=== PATIENT | female | born 1965 | race Two or more races ===

== ENCOUNTER 2021-08-05 16:32 | Emergency (ER) | payer SELFPAY ==
[~2021-08-05] VITALS: Ht 170.2 cm; Wt 81.8 kg
[2021-08-05] MEDS ORDERED: ASPIRIN 325 MG TABLET PO ONE (17:00)
[2021-08-05] MEDS ORDERED: MORPHINE SULFATE 2 MG/ML INJ. IV/SQ PRN (17:00)
[2021-08-05 17:07] LABS: BASO % 1 % (0-3); EOS # 0.2 x10^3/uL (0.0-0.7); EOS % 3 % (0-3); HEMATOCRIT 42.4 % (36.0-47.0); HEMOGLOBIN 14.8 g/dL (12.0-15.5); LYMPH # 2.9 x10^3/uL (1.0-4.8); LYMPH % 43 % (24-48); MEAN CORPUSCULAR HEMOGLOBIN 32 pg (25-35); MEAN CORPUSCULAR HGB CONC 35 g/dL (31-37); MEAN CORPUSCULAR VOLUME 91 fL (79-100); MONO # 0.5 x10^3/uL (0.0-1.1); MONO % 7 % (0-9); NEUT # 3.1 x10^3/uL (1.8-7.7); NEUT % 46 % (31-73); PLATELET COUNT 202 x10^3/uL (140-400); RED BLOOD COUNT 4.64 x10^6/uL (3.50-5.40); WHITE BLOOD COUNT 6.7 x10^3/uL (4.0-11.0)
[2021-08-05 17:19] LABS: CALCIUM 8.6 mg/dL (8.5-10.1); CREATININE 0.6 mg/dL (0.6-1.0); GFR 103.4; POTASSIUM 3.7 mmol/L (3.5-5.1)
--- NOTE | 2021-08-05 17:20 | RAD ---
EXAMINATION: Chest radiograph. VIEWS: 1 COMPARISON: None INDICATION:55 years, Female, chest pain. FINDINGS: Normal cardiomediastinal silhouette. Diffuse bilateral pulmonary reticulations. No pleural effusion o r pneumothorax. No acute osseous process. IMPRESSION: Diffuse bilateral pulmonary reticulations, findings may reflect mild interstitial pulmonary edema. Electronically signed by: Alo Sexton MD (08/05/2021 5:17 PM) [facility]
[2021-08-05 17:24] LABS: ALBUMIN 3.8 g/dL (3.4-5.0); ALBUMIN/GLOBULIN RATIO 0.9 (1.0-1.7); MAGNESIUM 2.1 mg/dL (1.8-2.4); TOTAL BILIRUBIN 0.4 mg/dL (0.2-1.0); TOTAL PROTEIN 7.9 g/dL (6.4-8.2)
[2021-08-05] MEDS ORDERED: ALPRAZolam 0.5 MG TABLET PO ONE (19:00)
[2021-08-05] MEDS ORDERED: LIDO:MAALOX 1:1 20 ML SINGLE DOSE. SWSW ONE (19:00)
[2021-08-05 19:12] LABS: BARBITURATES NEG (NEG); BENZODIAZEPINES NEG (NEG); CANNABINOIDS NEG (NEG); COCAINE NEG (NEG); METHADONE NEG (NEG); OPIATES NEG (NEG); PHENCYCLIDINE NEG (NEG)
[2021-08-05 19:35] LABS: AMPHETAMINE/METHAMPHETAMINE NEG (NEG)
[2021-08-05 19:46] LABS: BACTERIA,URINE 0 /HPF (0-FEW); RBC,URINE 0 /HPF (0-2); WBC,URINE 0 /HPF (0-4)
--- NOTE | 2021-08-05 20:36 | PHYS DOC ---
Past Medical History Past Medical History: Anxiety Past Surgical History: No Surgical History Smoking Status: Never Smoker Alcohol Use: None General Adult EDM: Chief Complaint: CHEST PAIN HPI: HPI: Patient is a 55 year old female with history of anxiety presenting to the ED today complaining of 10 out of 10 left-sided intermittent chest pain, symptoms of been going on for 3 months. Patient denies anything exacerbating or relieving her symptoms. Denies any pain radiating anywhere in the chest. Freight Adjuster line was used for [place] as well as patient's past interpreted Review of Systems: Review of Systems: Constitutional: Denies fever or chills. [] Eyes: Denies change in visual acuity. [] HENT: Denies nasal congestion or sore throat. [] Respiratory: Denies cough or shortness of breath. [] Cardiovascular: Reports chest pain Musculoskeletal: Denies back pain or joint pain. [] Integument: Denies rash. [] Neurologic: Denies headache, focal weakness or sensory changes. [] Psychiatric: Denies depression or anxiety. [] Heart Score: C/O Chest Pain: Yes HEART Score for Chest Pain: HEART Score for Chest Pain Response (Comments) Value History Slighlty/Non-Suspicious 0 ECG Normal 0 Age >45 - < 65 1 Risk Factors No Risk Factors 0 Troponin < Normal Limit 0 Total 1 Risk Factors: Risk Factors: DM, Current or recent (<one month) smoker, HTN, HLP, family hist ory of CAD, obesity. Risk Scores: Score 0 - 3: 2.5% MACE over next 6 weeks - Discharge Home Score 4 - 6: 20.3% MACE over next 6 weeks - Admit for Clinical Observation Score 7 - 10: 72.7% MACE over next 6 weeks - Early Invasive Strategies Current Medications: Current Medications Medications (Trade) Dose Ordered Sig/Will Start Time Stop Time Status Last Admin Dose Admin Alprazolam (Xanax) 0.5 mg 1X ONCE 08/05/21 19:00 08/05/21 19:01 DC 08/05/21 19:22 0.5 MG Aspirin (Onur Aspirin) 325 mg 1X ONCE 08/05/21 17:00 08/05/21 17:45 DC 08/05/21 18:20 325 MG Morphine Sulfate (Morphine Sulfate) 2 mg PRN Q15MIN PRN 08/05/21 17:00 08/06/21 16:59 08/05/21 18:21 2 MG Multi-Ingredient Mouthwash/Gargle (Gi Cocktail) 20 ml 1X ONCE 08/05/21 19:00 08/05/21 19:01 DC 08/05/21 19:23 20 ML Allergies: Allergies: Allergies Coded Allergies Type Severity Reaction Last Updated Verified No Known Drug Allergies 08/05/21 No Physical Exam: PE: Constitutional: Well developed, well nourished, no acute distress, non-toxic appearance. [] HENT: Normocephalic, atraumatic, bilateral external ears normal, oropharynx moist, no oral exudates, nose normal. [] Eyes: PERRLA, EOMI, conjunctiva normal, no discharge. [] Neck: Normal range of motion, no tenderness, supple, no stridor. [] Cardiovascular:Heart rate regular rhythm, no murmur [] Lungs & Thorax: Bilateral breath sounds clear to auscultation [] Abdomen: Bowel sounds normal, soft, no tenderness, no masses, no pulsatile masses. [] Skin: Warm, dry, no erythema, no rash. [] Back: No tenderness, no CVA tenderness. [] Extremities: No tenderness, no cyanosis, no clubbing, ROM intact, no edema. [] Neurologic: Alert and oriented X 3, normal motor function, normal sensory function, no focal deficits noted. [] Psychologic: Affect normal, judgement normal, mood normal. [] Current Patient Data: Labs: Laboratory Tests Test 08/05/21 16:45 08/05/21 19:00 08/05/21 19:42 White Blood Count 6.7 x10^3/uL (4.0-11.0) Red Blood Count 4.64 x10^6/uL (3.50-5.40) Hemoglobin 14.8 g/dL (12.0-15.5) Hematocrit 42.4 % (36.0-47.0) Mean Corpuscular Volume 91 fL (79-100) Mean Corpuscular Hemoglobin 32 pg (25-35) Mean Corpuscular Hemoglobin Concent 35 g/dL (31-37) Red Cell Distribution Width 13.0 % (11.5-14.5) Platelet Count 202 x10^3/uL (140-400) Neutrophils (%) (Auto) 46 % (31-73) Lymphocytes (%) (Auto) 43 % (24-48) Monocytes (%) (Auto) 7 % (0-9) Eosinophils (%) (Auto) 3 % (0-3) Basophils (%) (Auto) 1 % (0-3) Neutrophils # (Auto) 3.1 x10^3/uL (1.8-7.7) Lymphocytes # (Auto) 2.9 x10^3/uL (1.0-4.8) Monocytes # (Auto) 0.5 x10^3/uL (0.0-1.1) Eosinophils # (Auto) 0.2 x10^3/uL (0.0-0.7) Basophils # (Auto) 0.0 x10^3/uL (0.0-0.2) Sodium Level 139 mmol/L (136-145) Potassium Level 3.7 mmol/L (3.5-5.1) Chloride Level 101 mmol/L (98-107) Carbon Dioxide Level 27 mmol/L (21-32) Anion Gap 11 (6-14) Blood Urea Nitrogen 12 mg/dL (7-20) Creatinine 0.6 mg/dL (0.6-1.0) Estimated GFR (Cockcroft-Gault) 103.4 BUN/Creatinine Ratio 20 (6-20) Glucose Level 101 mg/dL (70-99) H Calcium Level 8.6 mg/dL (8.5-10.1) Magnesium Level 2.1 mg/dL (1.8-2.4) Total Bilirubin 0.4 mg/dL (0.2-1.0) Aspartate Amino Transferase (AST) 34 U/L (15-37) Alanine Aminotransferase (ALT) 36 U/L (14-59) Alkaline Phosphatase 121 U/L (46-116) H Troponin I High Sensitivity 7 ng/L (4-50) 7 ng/L (4-50) WM-Dbc-J-Type Natriuretic Peptide 93 pg/mL (0-124) Total Protein 7.9 g/dL (6.4-8.2) Albumin 3.8 g/dL (3.4-5.0) Albumin/Globulin Ratio 0.9 (1.0-1.7) L Urine Collection Type Unknown Urine Color (Auto) Colorless Urine Turbidity Clear Urine pH (Auto) 7.0 (<5.0-8.0) Urine Specific [place] 1.004 (1.000-1.030) Urine Protein (Auto) Negative mg/dL (Negative) Urine Glucose (Auto)(UA) Negative mg/dL (Negative) Urine Ketones (Auto) Negative mg/dL (Negative) Urine Blood (Auto) Negative (Negative) Urine Nitrite Negative (Negative) Urine Bilirubin (Auto) Negative (Negative) Urine Urobilinogen (Auto) Normal mg/dL (Normal) Urine Leukocyte Esterase (Auto) Negative (Negative) Urine RBC 0 /HPF (0-2) Urine WBC 0 /HPF (0-4) Urine Squamous Epithelial Cells Few /LPF Urine Bacteria 0 /HPF (0-FEW) Urine Opiates Screen Neg (NEG) Urine Methadone Screen Neg (NEG) Urine Barbiturates Neg (NEG) Urine Phencyclidine Screen Neg (NEG) Urine Amphetamine/Methamphetamine Neg (NEG) Urine Benzodiazepines Screen Neg (NEG) Urine Cocaine Screen Neg (NEG) Urine Cannabinoids Screen Neg (NEG) Urine Ethyl Alcohol Neg (NEG) Laboratory Tests 08/05/21 16:45 Laboratory Tests 08/05/21 16:45 Vital Signs: Vital Signs Date Time Temp Pulse Resp B/P (MAP) Pulse Ox O2 Delivery O2 Flow Rate FiO2 08/05/21 18:21 18 100 Room Air 08/05/21 18:11 98.4 67 133/65 (87) 98.4 EKG: EK interpreted by Dr. Aguilar sinus rhythm heart rate 85 no STEMI [address] Aguilar sinus rhythm heart rate 77 no STEMI Radiology/Procedures: Radiology/Procedures: []PROCEDURE: PORTABLE CHEST 1V EXAMINATION: Chest radiograph. VIEWS: 1 COMPARISON: None INDICATION:55 years, Female, chest pain. FINDINGS: Normal cardiomediastinal silhouette. Diffuse bilateral pulmonary reticulations. No pleural effusion or pneumothorax. No acute osseous process. IMPRESSION: Diffuse bilateral pulmonary reticulations, findings may reflect mild interstitial pulmonary edema. Electronically signed by: Mariana Sexton MD (08/05/2021 5:17 PM) [facility] DICTATED and SIGNED BY: MARIANA SEXTON MD DATE: 08/05/21 1157 Course & Med Decision Making: Course & Med Decision Making Pertinent Labs and Imaging studies reviewed. (See chart for details) This is a 55-year-old female patient presenting to the ED today with complaint of chest pain, symptoms began 3 months ago. Patient has no significant medical history apart from anxiety. She is on lorazepam. EKG, 2 sets of high-sensitivity troponin, CBC, CMP, UA-negative for any acute findings. Discharge to home. Follow-up with PCP and consumer electronic retail specialist in the course of this week Gino Disclaimer: Gino Disclaimer: This electronic medical record was generated, in whole or in part, using a voice recognition dictation system. Departure Departure Impression: Primary Impression: Chest pain Qualified Codes: R07.9 - Chest pain, unspecified Disposition: HOME / SELF CARE / HOMELESS Condition: STABLE Referrals: NO PCP (PCP) GIO GREENWOOD MD follow up with your doctor and the provided cardilogist this week Patient Instructions: Chest Pain (Nonspecific), [id number] Additional Instructions: You were evaluated in the emergency room for chest pain, your cardiac work-up is negative for any acute findings. Please follow-up with your primary care doctor and the provided consumer electronic retail specialist as soon as possible CRYSTAL HOUSTON SPEECH WRITER August 05, 2021 20:36
[2021-08-05 21:02] VITALS: BP 173/80
--- NOTE | 2021-08-06 02:32 | EKG ---
[facility] [address] [place] [address] Test Date: 2021-08-05 Test Time: 16:52:48 Pat Name: JENNY SPANGLER Department: Room: Gender: F Ginner Helper: : 1965 Requested By: CRYSTAL HOUSTON Order Number: [id number] Reading MD: Costa Kate MD Measurements Intervals [place] Rate: 85 P: 34 GA: 146 QRS: 19 QRSD: 96 T: 28 QT: 362 QTc: 431 Interpretive Statements SINUS RHYTHM Electronically Signed On 08-07-2021 15:38:21 CDT by Costa Kate MD
--- NOTE | 2021-08-06 02:33 | EKG ---
[facility] [address] [place] [address] Test Date: 2021-08-05 Test Time: 18:06:08 Pat Name: JENNY SPANGLER Department: Room: Gender: F Drafter Landscape: : 1965 Requested By: CRYSTAL HOUSTON Order Number: [id number] Reading MD: Costa Kate MD Measurements Intervals [place] Rate: 77 P: 42 TN: 148 QRS: 14 QRSD: 88 T: 19 QT: 370 QTc: 420 Interpretive Statements SINUS RHYTHM Electronically Signed On 08-07-2021 15:37:52 CDT by Costa Kate MD
== END 2021-08-05 21:03 | disposition home or self-care (01) ==
LOC: EDBD 16:32 → ER 16:32
DX: R07.89 Other chest pain (principal); F41.9 Anxiety disorder, unspecified
CPT/HCPCS: 36415; 71045; 80053; 80307; 81001; 83735; 83880; 84484; 85025; 93005; 96374; 99285; J2270